=== PATIENT | female | born 1985 | race Caucasian/White ===

== ENCOUNTER 2021-09-16 05:07 | Inpatient (IN) | payer BC ==
[2021-09-16] MEDS ORDERED: Water For Irrigation,Sterile 1,000 ML Container IRR PRN (05:11)
[2021-09-16] MEDS ORDERED: Methylergonovine 0.2 MG/1 ML Amp IM PRN (05:11)
[2021-09-16] MEDS ORDERED: Sodium Chloride 0.9% 20 ML SDV IV PRN (05:11)
[2021-09-16] MEDS ORDERED: Butorphanol 1 MG/ML SDV IVPUSH PRN (05:11)
[2021-09-16] MEDS ORDERED: Carboprost Tromethamine 250 MCG/1 ML Amp IM PRN (05:11)
[2021-09-16] MEDS ORDERED: Sodium Chloride 0.9% 10 ML Syringe FLUSH PRN (05:11)
[2021-09-16] MEDS ORDERED: Lidocaine 1% 50 ML MDV INJECT PRN (05:11)
[2021-09-16] MEDS ORDERED: Misoprostol 25 MCG (1/4 of 100 MCG) Tab VAG PRN (05:11)
[2021-09-16] MEDS ORDERED: Nalbuphine 10 MG/1 ML Vial IVPUSH PRN (05:11)
[2021-09-16] MEDS ORDERED: Tranexamic Acid 1,000 MG in Sodium Chloride 0.9% 100 ML IV PRN (05:11)
[2021-09-16] MEDS ORDERED: Misoprostol 200 MCG Tab PO PRN (05:11)
[2021-09-16] MEDS ORDERED: Terbutaline 1 MG/ML SDV SUBCUT PRN (05:11)
[2021-09-16] MEDS ORDERED: Sodium Chloride 0.9% 2.5 ML Syringe FLUSH PRN (05:11)
[2021-09-16] MEDS ORDERED: Ondansetron 4 MG/2 ML SDV IVPUSH PRN (05:11)
[2021-09-16] MEDS ORDERED: Oxytocin/0.9 % Sodium Chloride 30 UNIT/500 ML BAG IV SCH ×2 (05:15)
[2021-09-16] MEDS ORDERED: Sodium Chloride 0.9% 20 ML SDV FLUSH PRN (05:23)
[2021-09-16] MEDS: Lactated Ringers 1,000 ML IV SCH ×4 (05:33→19:59)
[2021-09-16 09:29] LABS: BLOOD UREA NITROGEN,BUN 9 mg/dL (7.0-18.0); CARBON DIOXIDE,CO2 20.4 mmol/L (21.0-32.0); CHLORIDE,CL 103 mmol/L (98-107); GLUCOSE RANDOM 158 mg/dL (74-106); POTASSIUM,K 3.7 mmol/L (3.5-5.1); SODIUM,NA 137 mmol/L (136-145)
[2021-09-16] MEDS: Misoprostol 25 MCG (1/4 of 100 MCG) Tab VAG PRN ×2 (10:25→14:52)
[2021-09-16] MEDS ORDERED: Ropivacaine HCl/PF 200 ML ONE (19:45)
[2021-09-16] MEDS ORDERED: ePHEDrine 50 MG/ML SDV IVPUSH PRN (20:13)
[2021-09-16] MEDS ORDERED: Ropivacaine/PF 400 MG/200 ML PCA EPIDUR SCH (20:15)
--- NOTE | 2021-09-16 20:16 | PCM.PREANE ---
Preanesthetic Assessment - Anesthesia/Transfusion/Family Hx Anesthesia History: Prior Anesthesia Without Reaction Family History of Anesthesia Reaction: No Transfusion History: No Prior Transfusion(s) - Review of Systems General: No Symptoms Pulmonary: No Symptoms Cardiovascular: No Symptoms Gastrointestinal: No Symptoms Neurological: No Symptoms Other: Reports: None (hypothyroid) - Physical Assessment NPO Status Date: 09/16/21 NPO Status Time: 15:00 Vital Signs: Last Vital Signs Temp 36.1 C 09/16/21 08:08 Pulse 67 09/16/21 08:08 Resp 20 09/16/21 08:08 BP 135/60 09/16/21 08:08 Pulse Ox Height: 1.78 m Weight: 112.491 kg ASA Class: 2 Mental Status: Alert & Oriented x3 Airway Class: Mallampati = 2 Dentition: Reports: Normal Dentition Thyro-Mental Finger Breadths: 3 Mouth Opening Finger Breadths: 3 ROM/Head Extension: Full Lungs: Clear to Auscultation, Normal Respiratory Effort Cardiovascular: Regular Rate, Regular Rhythm - Lab Values: Laboratory Last Values WBC 8.11 K/uL (4.0-11.0) 09/16/21 05:25 RBC 4.23 M/uL (4.30-5.90) L 09/16/21 05:25 Hgb 12.9 g/dL (12.0-16.0) 09/16/21 05:25 Hct 37.8 % (36.0-46.0) 09/16/21 05:25 MCV 89.4 fL (80.0-98.0) 09/16/21 05:25 MCH 30.5 pg (27.0-32.0) 09/16/21 05:25 MCHC 34.1 g/dL (31.0-37.0) 09/16/21 05:25 RDW Std Deviation 46.0 fl (28.0-62.0) 09/16/21 05:25 RDW Coeff of Simon 14 % (11.0-15.0) 09/16/21 05:25 Plt Count 233 K/uL (150-400) 09/16/21 05:25 MPV 11.90 fL (7.40-12.00) 09/16/21 05:25 Nucleated RBC % 0.0 /100WBC 09/16/21 05:25 Nucleated RBCs # 0 K/uL 09/16/21 05:25 Sodium 137 mmol/L (136-145) 09/16/21 05:25 Potassium 3.7 mmol/L (3.5-5.1) 09/16/21 05:25 Chloride 103 mmol/L (98-107) 09/16/21 05:25 Carbon Dioxide 20.4 mmol/L (21.0-32.0) L 09/16/21 05:25 BUN 9 mg/dL (7.0-18.0) 09/16/21 05:25 Creatinine 0.9 mg/dL (0.6-1.0) 09/16/21 05:25 Est Cr Clr Drug Dosing 92.55 mL/min 09/16/21 05:25 Estimated GFR (MDRD) > 60.0 ml/min 09/16/21 05:25 Glucose 158 mg/dL (74-106) H 09/16/21 05:25 Uric Acid 5.3 mg/dL (2.6-7.2) 09/16/21 05:25 Calcium 8.5 mg/dL (8.5-10.1) 09/16/21 05:25 Total Bilirubin 0.2 mg/dL (0.2-1.0) 09/16/21 05:25 AST 22 IU/L (15-37) 09/16/21 05:25 ALT 21 IU/L (14-63) 09/16/21 05:25 Alkaline Phosphatase 195 U/L (46-116) H 09/16/21 05:25 Total Protein 6.3 g/dL (6.4-8.2) L 09/16/21 05:25 Albumin 2.5 g/dL (3.4-5.0) L 09/16/21 05:25 Globulin 3.8 g/dL (2.6-4.0) 09/16/21 05:25 Albumin/Globulin Ratio 0.7 (0.9-1.6) L 09/16/21 05:25 Ur Random Creatinine 37.7 mg/dL 09/16/21 09:45 U Random Total Protein 17.0 mg/dL (<11.9) H 09/16/21 09:45 Protein/Creatinin Ratio 0.5 09/16/21 09:45 Blood Type A POSITIVE 09/16/21 05:25 Antibody Screen NEGATIVE 09/16/21 05:25 - Allergies Allergies/Adverse Reactions: Allergies Allergy/AdvReac Type Severity Reaction Status Date / Time ethinyl estradiol Allergy Sneezing Verified 09/15/21 11:28 [From ()] levonorgestrel Allergy Sneezing Verified 09/15/21 11:28 [From ()] - Blood Blood Available: Yes Product(s) Available: PRBC (Type and screen) - Anesthesia Plan Pre-Op Medication Ordered: None - Acknowledgements Anesthesia Type Planned: Epidural Pt an Appropriate Candidate for the Planned Anesthesia: Yes Alternatives and Risks of Anesthesia Discussed w Pt/Guardian: Yes Pt/Guardian Understands and Agrees with Anesthesia Plan: Yes PreAnesthesia Questionnaire HEENT History: Reports: Impaired Vision, Other (See Below) Other HEENT History: seasonal allergies Cardiovascular History: Reports: None Respiratory History: Reports: None Gastrointestinal History: Reports: Other (See Below) Other Gastrointestinal History: heartburn with Genitourinary History: Reports: None PROJECT CONTROL ANALYST History: Reports: Fibroids, Musculoskeletal History: Reports: RA Neurological History: Reports: Migraines Psychiatric History: Reports: None Endocrine/Metabolic History: Reports: Hypothyroidism Hematologic History: Reports: None Immunologic History: Reports: None Oncologic (Cancer) History: Reports: None Dermatologic History: Reports: Eczema - Infectious Disease History Infectious Disease History: Reports: Chicken Pox - Past Surgical History HEENT Surgical History: Reports: Oral Surgery GI Surgical History: Reports: None Female Surgical History: Reports: None Musculoskeletal Surgical History: Reports: None - SUBSTANCE USE Tobacco Use Status *Q: Never Tobacco User Second Hand Smoke Exposure: No Recreational Drug Use History: No - HOME MEDS Home Medications: Home Meds Levothyroxine [Synthroid] 100 mcg PO ACBREAKFAST 09/16/21 [History] Vit #76/Iron,Carb/Fa [Pnv 29-1 Tablet] 1 tab PO DAILY 09/16/21 [History] - CURRENT (IN HOUSE) MEDS Current Meds: Current Medications Butorphanol Tartrate (Butorphanol 1 Mg/Ml Sdv) 1 mg IVPUSH Q1H PRN PRN Reason: Pain (severe 7-10) Carboprost Tromethamine (Carboprost Tromethamine 250 Mcg/1 Ml Amp) 250 mcg IM ASDIRECTED PRN PRN Reason: Post Hemorrhage Oxytocin/Sodium Chloride (Oxytocin 30 Unit In Ns 0.9% 500 Ml Premix) 30 unit in 500 mls @ 2 mls/hr IV TITRATE SUSIE; Protocol Last Admin: 09/16/21 19:42 Dose: 2 munits/min, 2 mls/hr Documented by: Lactated Ringer's (Ringers, Lactated) 1,000 mls @ 150 mls/hr IV ASDIRECTED SUSIE Last Infusion: 09/16/21 20:07 Dose: 150 mls/hr Documented by: Oxytocin/Sodium Chloride (Oxytocin 30 Unit In Ns 0.9% 500 Ml Premix) 30 unit in 500 mls @ 999 mls/hr IV TITRATE SUSIE Tranexamic Acid 1,000 mg/ (Sodium Chloride) 110 mls @ 660 mls/hr IV ONETIME PRN PRN Reason: Bleeding Lidocaine HCl (Lidocaine 1% 50 Ml Mdv) 50 ml INJECT ONETIME PRN PRN Reason: Laceration repair Methylergonovine Maleate (Methylergonovine 0.2 Mg/1 Ml Amp) 0.2 mg IM ASDIRECTED PRN PRN Reason: Post Hemorrhage Misoprostol (Misoprostol 25 Mcg (1/4 Of 100 Mcg) Tab) 25 mcg VAG ONETIME PRN PRN Reason: Cervical Ripening Misoprostol (Misoprostol 25 Mcg (1/4 Of 100 Mcg) Tab) 25 mcg VAG Q4H PRN PRN Reason: Cervical Ripening Last Admin: 09/16/21 14:52 Dose: 25 mcg Documented by: Misoprostol (Misoprostol 200 Mcg Tab) 200 mcg PO ONETIME PRN PRN Reason: Post Hemorrhage Nalbuphine HCl (Nalbuphine 10 Mg/1 Ml Vial) 10 mg IVPUSH Q1H PRN PRN Reason: Pain (severe 7-10) Last Admin: 09/16/21 17:23 Dose: 10 mg Documented by: Ondansetron HCl (Ondansetron 4 Mg/2 Ml Sdv) 4 mg IVPUSH Q4H PRN PRN Reason: Nausea/Vomiting Sodium Chloride (Sodium Chloride 0.9% 10 Ml Syringe) 10 ml FLUSH ASDIRECTED PRN PRN Reason: Keep Vein Open Sodium Chloride (Sodium Chloride 0.9% 2.5 Ml Syringe) 2.5 ml FLUSH ASDIRECTED PRN PRN Reason: Keep Vein Open Sodium Chloride (Sodium Chloride 0.9% 20 Ml Sdv) 10 ml IV ASDIRECTED PRN PRN Reason: IV Use Sodium Chloride (Sodium Chloride 0.9% 20 Ml Sdv) 10 ml FLUSH ASDIRECTED PRN PRN Reason: IV Use Sterile Water (Water For Irrigation,Sterile 1,000 Ml Container) 1,000 ml IRR ASDIRECTED PRN PRN Reason: delivery Terbutaline Sulfate (Terbutaline 1 Mg/Ml Sdv) 0.25 mg SUBCUT ASDIRECTED PRN PRN Reason: Tacysystole Discontinued Medications Ropivacaine (Naropin 0.2%) Confirm Administered Dose 200 mls @ as directed .ROUTE .[facility]-MED ONE Stop: 09/16/21 19:46
--- NOTE | 2021-09-16 20:19 | PCM.SN.2 ---
- Pre-Procedure Checklist Attending Provider Aware: Yes Chart Reviewed: Yes Consent Signed: Yes Labs Reviewed: Yes VS/FHR Reviewed: Yes Patient Identification Confirmation Method: Reports: Chart Visual, Verbal Patient Pt an Appropriate Candidate for the Planned Anesthesia: Yes Alternatives and Risks of Anesthesia Discussed w Pt/Guardian: Yes - Procedure Procedure Start Date: 09/16/21 Procedure Start Time: 19:[address]: Reports: Blood Pressure, Heart Rate, SPO2 Functional IV: Yes Bolus Infused (fluid type and amount): 800 of LR in at time of infusion start Safety Measures: Reports: Patient Identified, Procedure Verified, Site Verified, Procedure Time Out Patient Position: Reports: Sitting Prep: Reports: Betadine x3 Local Anesthetic: Reports: Intradermal Wheal w Lidocaine 1% (3 ml) Regional Placement Level: Reports: L3-4 Needle: Reports: 17 g Touhy Approach: Reports: Midline Technique: Reports: HENRY Glass Syringe Parasthesia: Reports: None Fluid Obtained: Reports: None Catheter Depth at Skin (cm): 15 cm Test Dose Time: 19:40 Test Dose Medication: Reports: Lidocaine 1.5% w Epinephrine 1:200,000 (5 ml) Test Dose Response: Reports: Negative Loading Dose Time: 19:56 Loading Dose Medication: Ropivicaine 0.2% Loading Dose Patient Position: 8 ml Continuous Infusion Start Time: 19:57 Continuous Infusion Medication: Ropivicaine 0.2% Continuous Infusion Rate: 14 Continuous Infusion PCS Bolus Option: 6 Continuous Infusion Lockout Dose (cc/hr): 15 Patient Position Post Placement: Reports: Supline/LIZETTE Post-procedure Pain Level: 0 Level Achieved: T4 Procedure End Date: 09/16/21 Procedure End Time: 20:25 Procedure Comment: Sterile technique used throughout.
--- NOTE | 2021-09-16 20:20 | PCM.POSTAN ---
POST ANESTHESIA ASSESSMENT - MENTAL STATUS Mental Status: Alert, Oriented - VITAL SIGNS Vital Signs: Last Vital Signs Temp 36.1 C 09/16/21 08:08 Pulse 67 09/16/21 08:08 Resp 20 09/16/21 08:08 BP 135/60 09/16/21 08:08 Pulse Ox - RESPIRATORY Respiratory Status: Respiratory Rate WNL, Airway Patent, O2 Saturation Stable - CARDIOVASCULAR CV Status: Pulse Rate WNL, Blood Pressure Stable - GASTROINTESTINAL GI Status: No Symptoms - POST OP HYDRATION Hydration Status: Adequate & Stable
[2021-09-17] MEDS ORDERED: Sodium Chloride 0.9% 1,000 ML IRR SCH (00:24)
[2021-09-17] MEDS: Lactated Ringers 1,000 ML IV SCH (01:00)
[2021-09-17] MEDS ORDERED: fentaNYL 100 MCG/2 ML SDV ONE (07:28)
[2021-09-17] MEDS ORDERED: Octyl 2-Cyanoacrylate 1 Tube ONE (07:41)
[2021-09-17] MEDS ORDERED: Citric Acid/Sodium Citrate Solution 30 ML Cup PO ONE (08:09)
[2021-09-17] MEDS ORDERED: Sodium Chloride 0.9% 2.5 ML Syringe FLUSH PRN (08:09)
[2021-09-17] MEDS ORDERED: ceFAZolin 2 GM in Premix Bag 1 BAG IV ONE (08:09)
[2021-09-17] MEDS ORDERED: Lidocaine 2% with EPINEPHrine 1:100,000 20 ML MDV ONE (08:15)
[2021-09-17] MEDS ORDERED: Lactated Ringers 1,000 ML IV SCH ×2 (08:15→10:15)
[2021-09-17] MEDS ORDERED: Oxytocin 10 Units/1 ML SDV ONE (08:39)
--- NOTE | 2021-09-17 09:42 | PCM48HPAN ---
Post Anesthesia Note - EVALUATION WITHIN 48HRS OF ANESTHETIC Vital Signs in Normal Range: Yes Patient Participated in Evaluation: Yes Respiratory Function Stable: Yes Airway Patent: Yes Cardiovascular Function Stable: Yes Hydration Status Stable: Yes Pain Control Satisfactory: Yes Nausea and Vomiting Control Satisfactory: Yes Mental Status Recovered: Yes Vital Signs: Last Vital Signs Temp 36.1 C 09/16/21 08:08 Pulse 98 09/17/21 09:32 Resp 16 09/17/21 09:32 BP 122/69 09/17/21 09:32 Pulse Ox 94 L 09/17/21 09:32 - COMMENTS/OBSERVATIONS Free Text/Narrative:: Epidural catheter removed with tip intact.
[2021-09-17] MEDS ORDERED: Bisacodyl 10 MG Supp RECTAL PRN (10:10)
[2021-09-17] MEDS ORDERED: Ondansetron 4 MG/2 ML SDV IVPUSH PRN (10:10)
[2021-09-17] MEDS ORDERED: Oxytocin 10 Units/1 ML SDV IM PRN (10:10)
[2021-09-17] MEDS ORDERED: Tranexamic Acid 1,000 MG in Sodium Chloride 0.9% 100 ML IV PRN (10:10)
[2021-09-17] MEDS ORDERED: Methylergonovine 0.2 MG/1 ML Amp IM PRN (10:10)
[2021-09-17] MEDS ORDERED: Lanolin 100% Cream 7 GM Tube TOP PRN (10:10)
[2021-09-17] MEDS ORDERED: diphenhydrAMINE 50 MG/ML SDV IVPUSH PRN (10:10)
[2021-09-17] MEDS ORDERED: Misoprostol 200 MCG Tab RECTAL PRN (10:10)
[2021-09-17] MEDS ORDERED: Acetaminophen/oxyCODONE 325-5 MG Tab PO PRN (10:10)
[2021-09-17] MEDS ORDERED: Oxytocin/Lactated Ringers 30 UNIT/500 ML BAG IV SCH (10:15)
--- NOTE | 2021-09-17 10:19 | PCM.OPNOTE ---
- General Post-Op/Procedure Note Date of Surgery/Procedure: 09/17/21 Operative Procedure(s): Primary lower segment transverse section Findings: Live male delivered at 826am , 9/9 weight 3990g Pre Op Diagnosis: 36yo @ 40w0d. Arrest of descent. Mild preclampsia Post-Op Diagnosis: 36yo @ 40w0d. Arrest of descent. Mild preclampsia Anesthesia Technique: Epidural Primary Surgeon: Quentin Lees Anesthesia Provider: Bertrand Verdin Fluid Replacement, Intraop: 1,700 Output, Urine Amount: 150 EBL in mLs: 800 Complications: None Condition: Good Free Text/Narrative:: Intake & Output 09/16/21 09/17/21 09/17/21 22:59 06:59 14:59 Intake Total 750 1700 Output Total 850 150 Balance -100 1550
[2021-09-17] MEDS: Ketorolac 30 MG/ML SDV IVPUSH SCH ×3 (11:49→23:50)
--- NOTE | 2021-09-17 13:11 | OR ---
SURGEON: YANCI BAR DATE OF PROCEDURE:09/17/2021 PREOPERATIVE DIAGNOSES: 1. 36-year-old G1, P0, at 40 weeks 0 days. 2. In vitro fertilization . 3. Mild preeclampsia. 4. Arrest of descent. POSTOPERATIVE DIAGNOSES: 1. 36-year-old G1, P0, at 40 weeks 0 days. 2. In vitro fertilization . 3. Mild preeclampsia. 4. Arrest of descent. PROCEDURE: Primary lower segment section. ESTIMATED BLOOD LOSS: 800. INTRAVENOUS FLUIDS: 1700. URINE OUTPUT: 150. NOTES AND FINDINGS: Live male delivered at 8:26. scores of 9 and 9. Weight is 3990 g. COMPLICATION: None. ANESTHESIA: Epidural. BRIEF HISTORY: 36-yo @ 40w0d with IVF . was normal except for a splenic cyst that was noted on ultrasound. She saw M and [facility] recommended followup. She was counseled for induction of labor after 39weeks which she accepted. Induction of labor was started with Cytotec. She got three doses of Cytotec, after which she got Pitocin. When Pitocin was started, patient was noted to have some variable decels, so Pitocin was stopped. AROM was done and IUPC was placed. Amnioinfusion was started. Tracing improved. Patient made change, became fully dilated. Slight Pitocin was started prior to this. When patient was fully dilated, she was encouraged to push. She pushed for 2 hours. Baby was in OP position. Attempt was made to rotate, patient was fatigued and there was no descent. As a result, recommendation was for delivery via primary section. She was explained the risks, benefits, and alternatives and decided to proceed. Prior to delivery, Pillow was placed to elevated the head without any difficulty. DESCRIPTION OF PROCEDURE: Patient was taken to the operating room where epidural anesthesia was topped up. She was prepared and draped in the dorsal supine position with a leftward tilt. A Pfannenstiel skin incision was made with a scalpel and carried down to the fascia with the Bovie. The fascia was incised and extended upwards and laterally. The fascia was then superiorly and also inferiorly. Rectus muscle was in midline to the level of pubic symphysis. The Gerardo retractor was placed to expose the lower uterine segment. A bladder flap was created. Lower uterine segment incision was made. The infant was in OP position, was brought to the level of the incision, and delivered without difficulty. Delayed cord clamping was observed. Cord blood gases were obtained. The placenta was delivered via manual massage of the uterine fundus. The uterus was cleaned with moist laparotomy sponge. The incision was closed in two layers, first layer with 0 Vicryl, second layer with 0 Monocryl. The incision was inspected and noted to be hemostatic. In the uterus, there was noted to be some fibroids. Subserosal fibroids were noted, and ovary was seen on the left. Right side was not visualized. The Gerardo retractor was removed. The incision was inspected and noted to be hemostatic. The peritoneum was closed with 2-0 Vicryl. The muscle was apposed in the midline with 0 Vicryl. The fascia was closed with 0 Vicryl. Subcutaneous fat was closed with plain gut, and the skin was closed with 3-0 Monocryl on a Ace needle. All instrument and pad counts were correct x2. The patient tolerated the procedure well and was taken to the Labor and Delivery room in stable condition. SURINDER JOSEPH /[id number] SHANKAR
[2021-09-17] MEDS: Docusate Sodium 100 MG Cap PO SCH (23:49)
[2021-09-18] MEDS: Ketorolac 30 MG/ML SDV IVPUSH SCH ×2 (05:19→10:41)
[2021-09-18] MEDS: Docusate Sodium 100 MG Cap PO SCH ×2 (10:40→22:10)
--- NOTE | 2021-09-18 12:14 | PCM.PNPP ---
- General Info Date of Service: 09/18/21 Functional Status: Reports: Pain Controlled, Tolerating Diet, Ambulating, Urinating, Other (Passing flatus) - Review of Systems General: Reports: No Symptoms HEENT: Reports: No Symptoms Pulmonary: Reports: No Symptoms Cardiovascular: Reports: No Symptoms Gastrointestinal: Reports: No Symptoms Genitourinary: Reports: No Symptoms Musculoskeletal: Reports: No Symptoms Skin: Reports: No Symptoms Neurological: Reports: No Symptoms Psychiatric: Reports: No Symptoms - Patient Data Vital Signs - Most Recent: Last Vital Signs Temp 36.6 C 09/18/21 11:50 Pulse 80 09/18/21 11:50 Resp 18 09/18/21 11:50 BP 121/58 L 09/18/21 11:50 Pulse Ox 94 L 09/18/21 11:50 Weight - Most Recent: 248 lb I&O - Last 24 Hours: Intake & Output 09/17/21 09/18/21 09/18/21 23:59 06:59 14:59 Intake Total Output Total Balance Lab Results - Last 24 Hours: Laboratory Results - last 24 hr 09/18/21 Range/Units 05:55 Hgb 9.3 L (12.0-16.0) g/dL Hct 27.6 L (36.0-46.0) % Med Orders - Current: Current Medications Bisacodyl (Bisacodyl 10 Mg Supp) 10 mg RECTAL ONETIME PRN PRN Reason: Constipation Butorphanol Tartrate (Butorphanol 1 Mg/Ml Sdv) 1 mg IVPUSH Q1H PRN PRN Reason: Pain (severe 7-10) Carboprost Tromethamine (Carboprost Tromethamine 250 Mcg/1 Ml Amp) 250 mcg IM ASDIRECTED PRN PRN Reason: Post Hemorrhage Diphenhydramine HCl (Diphenhydramine 50 Mg/Ml Sdv) 25 mg IVPUSH Q6H PRN PRN Reason: Itching or Nausea Docusate Sodium (Docusate Sodium 100 Mg Cap) 100 mg PO BID SUSIE Last Admin: 09/18/21 10:40 Dose: 100 mg Documented by: Emollient Ointment (Lanolin 100% Cream 7 Gm Tube) 0 gm TOP ASDIRECTED PRN PRN Reason: Sore Nipples Ephedrine Sulfate (Ephedrine 50 Mg/Ml Sdv) 10 mg IVPUSH Q1M PRN PRN Reason: Hypotension Oxytocin/Sodium Chloride (Oxytocin 30 Unit In Ns 0.9% 500 Ml Premix) 30 unit in 500 mls @ 2 mls/hr IV TITRATE SUSIE; Protocol Last Titration: 09/17/21 07:02 Dose: 0 munits/min, 0 mls/hr Documented by: Lactated Ringer's (Ringers, Lactated) 1,000 mls @ 150 mls/hr IV ASDIRECTED SUSIE Last Admin: 09/17/21 01:00 Dose: 150 mls/hr Documented by: Oxytocin/Sodium Chloride (Oxytocin 30 Unit In Ns 0.9% 500 Ml Premix) 30 unit in 500 mls @ 999 mls/hr IV TITRATE SUSIE Tranexamic Acid 1,000 mg/ (Sodium Chloride) 110 mls @ 660 mls/hr IV ONETIME PRN PRN Reason: Bleeding Sodium Chloride (Sodium Chloride 0.9%) 1,000 mls @ 999 mls/hr IRR ASDIRECTED SUSIE Last Infusion: 09/17/21 00:57 Dose: 50 mls/hr Documented by: Lactated Ringer's (Ringers, Lactated) 1,000 mls @ 500 mls/hr IV BOLUS SUSIE Lactated Ringer's (Ringers, Lactated) 1,000 mls @ 125 mls/hr IV ASDIRECTED SUSIE Oxytocin/Lactated Ringer's (Pitocin In Lr 30 Units/500 Ml) 30 unit in 500 mls @ 2 mls/hr IV TITRATE SUSIE; Protocol Tranexamic Acid 1,000 mg/ (Sodium Chloride) 110 mls @ 660 mls/hr IV ONETIME PRN PRN Reason: Bleeding Ibuprofen (Ibuprofen 800 Mg Tab) 800 mg PO Q8H PRN PRN Reason: Cramping Lidocaine HCl (Lidocaine 1% 50 Ml Mdv) 50 ml INJECT ONETIME PRN PRN Reason: Laceration repair Methylergonovine Maleate (Methylergonovine 0.2 Mg/1 Ml Amp) 0.2 mg IM ASDIRECTED PRN PRN Reason: Post Hemorrhage Methylergonovine Maleate (Methylergonovine 0.2 Mg/1 Ml Amp) 0.2 mg IM ONETIME PRN PRN Reason: Excessive Vaginal Bleeding Miscellaneous Medication (Phenylephrine Hcl In 0.9% Nacl 1 Mg/10 Ml Syringe) 0.1 mg IVPUSH Q1M PRN PRN Reason: Hypotension Misoprostol (Misoprostol 25 Mcg (1/4 Of 100 Mcg) Tab) 25 mcg VAG ONETIME PRN PRN Reason: Cervical Ripening Misoprostol (Misoprostol 25 Mcg (1/4 Of 100 Mcg) Tab) 25 mcg VAG Q4H PRN PRN Reason: Cervical Ripening Last Admin: 09/16/21 14:52 Dose: 25 mcg Documented by: Misoprostol (Misoprostol 200 Mcg Tab) 200 mcg PO ONETIME PRN PRN Reason: Post Hemorrhage Misoprostol (Misoprostol 200 Mcg Tab) 1,000 mcg RECTAL ONETIME PRN PRN Reason: excessive bleeding Nalbuphine HCl (Nalbuphine 10 Mg/1 Ml Vial) 10 mg IVPUSH Q1H PRN PRN Reason: Pain (severe 7-10) Last Admin: 09/16/21 17:23 Dose: 10 mg Documented by: Ondansetron HCl (Ondansetron 4 Mg/2 Ml Sdv) 4 mg IVPUSH Q4H PRN PRN Reason: Nausea/Vomiting Last Admin: 09/16/21 23:55 Dose: 4 mg Documented by: Ondansetron HCl (Ondansetron 4 Mg/2 Ml Sdv) 4 mg IVPUSH Q4H PRN PRN Reason: Nausea/Vomiting Oxycodone/Acetaminophen (Acetaminophen/Oxycodone 325-5 Mg Tab) 1 tab PO Q4H PRN PRN Reason: Pain (severe 7-10) Oxycodone/Acetaminophen (Acetaminophen/Oxycodone 325-5 Mg Tab) 2 tab PO Q4H PRN PRN Reason: Pain (severe 7-10) Oxytocin (Oxytocin 10 Units/1 Ml Sdv) 10 unit IM ASDIRECTED PRN PRN Reason: Excessive Vaginal Bleeding Ropivacaine (Ropivacaine/Pf 400 Mg/200 Ml Machine Precision Engraver) 400 mg EPIDUR ASDIRECTED SUSIE Sodium Chloride (Sodium Chloride 0.9% 10 Ml Syringe) 10 ml FLUSH ASDIRECTED PRN PRN Reason: Keep Vein Open Sodium Chloride (Sodium Chloride 0.9% 2.5 Ml Syringe) 2.5 ml FLUSH ASDIRECTED PRN PRN Reason: Keep Vein Open Sodium Chloride (Sodium Chloride 0.9% 20 Ml Sdv) 10 ml IV ASDIRECTED PRN PRN Reason: IV Use Sodium Chloride (Sodium Chloride 0.9% 20 Ml Sdv) 10 ml FLUSH ASDIRECTED PRN PRN Reason: IV Use Sodium Chloride (Sodium Chloride 0.9% 2.5 Ml Syringe) 2.5 ml FLUSH ASDIRECTED PRN PRN Reason: Keep Vein Open Sterile Water (Water For Irrigation,Sterile 1,000 Ml Container) 1,000 ml IRR ASDIRECTED PRN PRN Reason: delivery Terbutaline Sulfate (Terbutaline 1 Mg/Ml Sdv) 0.25 mg SUBCUT ASDIRECTED PRN PRN Reason: Tacysystole Discontinued Medications Citric Acid/Sodium Citrate (Citric Acid/Sodium Citrate Solution 30 Ml Cup) 30 ml PO ONETIME ONE Stop: 09/17/21 08:10 Last Admin: 09/17/21 11:52 Dose: Not Given Documented by: Fentanyl (Fentanyl 100 Mcg/2 Ml Sdv) Confirm Administered Dose 100 mcg .ROUTE .STK-MED ONE Stop: 09/17/21 07:29 Ropivacaine (Naropin 0.2%) Confirm Administered Dose 200 mls @ as directed .ROUTE .STK-MED ONE Stop: 09/16/21 19:46 Last Admin: 09/17/21 11:51 Dose: Not Given Documented by: Cefazolin Sodium/Dextrose 2 gm (/ Premix) 50 mls @ 100 mls/hr IV ONETIME ONE Stop: 09/17/21 08:38 Last Admin: 09/17/21 11:52 Dose: Not Given Documented by: Cefazolin Sodium/Dextrose (Ancef) Confirm Administered Dose 50 mls @ as directed .ROUTE .STK-MED ONE Stop: 09/17/21 08:16 Ketorolac Tromethamine (Ketorolac 30 Mg/Ml Sdv) 30 mg IVPUSH Q6H SUSIE Stop: 09/18/21 10:16 Last Admin: 09/18/21 10:41 Dose: 30 mg Documented by: Lidocaine/Epinephrine (Lidocaine 2% With Epinephrine 1:100,000 20 Ml Mdv) Confirm Administered Dose 20 ml .ROUTE .STK-MED ONE Stop: 09/17/21 08:16 Octyl Cyanoacrylate (Octyl 2-Cyanoacrylate 1 Tube) Confirm Administered Dose 1 applic .ROUTE .STK-MED ONE Stop: 09/17/21 07:42 Last Admin: 09/17/21 11:51 Dose: Not Given Documented by: Oxytocin (Oxytocin 10 Units/1 Ml Sdv) Confirm Administered Dose 20 unit .ROUTE .STK-MED ONE Stop: 09/17/21 08:40 - Infant Interaction Disposition, : [place] at Bedside Support Person: Significant Other - Recovery Exam Fundal Tone: Firm Fundal Level: 2 Fingerbreadths Below Umbilicus Fundal Placement: Midline Lochia Amount: Scant Lochia Color: Rubra/Red Perineum Description: Intact, Minimal Bruising/Swelling Episiotomy/Laceration: None Bladder Status: Indwelling Catheter in Place Urinary Elimination: Other (see below) Other Urinary Elimination, : Due to void. - Exam General: Alert, Oriented, Cooperative, No Acute Distress HEENT: Pupils Equal, Pupils Reactive, EOMI Neck: Supple, Trachea Midline, No JVD Lungs: Normal Respiratory Effort GI/Abdominal Exam: Soft, Non-Tender, No Distention Extremities: Normal Inspection, Normal Range of Motion, Non-Tender, No Pedal Edema Skin: Warm, Dry, Intact Wound/Incisions: Dressing Dry and Intact Neurological: No New Focal Deficit Psy/Mental Status: Alert, Normal Affect, Normal Mood - Problem List Review Problem List Initiated/Reviewed/Updated: Yes - Assessment Assessment:: 36yo POD1 s/p primary LTCS, complicated by preeclampsia without severe features and arrest of descent. Stable and recovering well. - Plan Plan:: - BP normotensive with occasional mild range, no symptoms - ambulating and tolerating PO - cortez removed, voiding - bleeding light, Hgb 9.3 this AM, start iron supplement Continue inpatient. Plan for discharge home tomorrow.
[2021-09-18] MEDS ORDERED: Ibuprofen 800 MG Tab PO PRN (16:15)
[2021-09-18] MEDS: Acetaminophen/oxyCODONE 325-5 MG Tab PO PRN (16:30)
[2021-09-19] MEDS: Acetaminophen/oxyCODONE 325-5 MG Tab PO PRN (08:10)
--- NOTE | 2021-09-19 08:23 | PCM.PNPP ---
- General Info Date of Service: 09/19/21 Subjective Update: 36yo P1 s/p primary POD2 , Mild preclampsia , Denies headache , RUQ pain and BV Pain control is good Functional Status: Reports: Pain Controlled, Tolerating Diet, Ambulating, Urinating - Review of Systems General: Reports: No Symptoms HEENT: Reports: No Symptoms Pulmonary: Reports: No Symptoms Cardiovascular: Reports: No Symptoms Gastrointestinal: Reports: No Symptoms Genitourinary: Reports: No Symptoms Musculoskeletal: Reports: No Symptoms Skin: Reports: No Symptoms Neurological: Reports: No Symptoms Psychiatric: Reports: No Symptoms - General Info Date of Service: 09/19/21 - Patient Data Vital Signs - Most Recent: Last Vital Signs Temp 36.1 C 09/19/21 07:30 Pulse 70 09/19/21 07:30 Resp 16 09/19/21 07:30 BP 129/84 09/19/21 07:30 Pulse Ox 95 09/19/21 07:30 Weight - Most Recent: 112.491 kg Med Orders - Current: Current Medications Bisacodyl (Bisacodyl 10 Mg Supp) 10 mg RECTAL ONETIME PRN PRN Reason: Constipation Butorphanol Tartrate (Butorphanol 1 Mg/Ml Sdv) 1 mg IVPUSH Q1H PRN PRN Reason: Pain (severe 7-10) Carboprost Tromethamine (Carboprost Tromethamine 250 Mcg/1 Ml Amp) 250 mcg IM ASDIRECTED PRN PRN Reason: Post Hemorrhage Diphenhydramine HCl (Diphenhydramine 50 Mg/Ml Sdv) 25 mg IVPUSH Q6H PRN PRN Reason: Itching or Nausea Docusate Sodium (Docusate Sodium 100 Mg Cap) 100 mg PO BID [facility] Last Admin: 09/18/21 22:10 Dose: 100 mg Documented by: Emollient Ointment (Lanolin 100% Cream 7 Gm Tube) 0 gm TOP ASDIRECTED PRN PRN Reason: Sore Nipples Ephedrine Sulfate (Ephedrine 50 Mg/Ml Sdv) 10 mg IVPUSH Q1M PRN PRN Reason: Hypotension Oxytocin/Sodium Chloride (Oxytocin 30 Unit In Ns 0.9% 500 Ml Premix) 30 unit in 500 mls @ 2 mls/hr IV TITRATE SUSIE; Protocol Last Titration: 09/17/21 07:02 Dose: 0 munits/min, 0 mls/hr Documented by: Lactated Ringer's (Ringers, Lactated) 1,000 mls @ 150 mls/hr IV ASDIRECTED SUSIE Last Admin: 09/17/21 01:00 Dose: 150 mls/hr Documented by: Oxytocin/Sodium Chloride (Oxytocin 30 Unit In Ns 0.9% 500 Ml Premix) 30 unit in 500 mls @ 999 mls/hr IV TITRATE SUSIE Tranexamic Acid 1,000 mg/ (Sodium Chloride) 110 mls @ 660 mls/hr IV ONETIME PRN PRN Reason: Bleeding Sodium Chloride (Sodium Chloride 0.9%) 1,000 mls @ 999 mls/hr IRR ASDIRECTED SUSIE Last Infusion: 09/17/21 00:57 Dose: 50 mls/hr Documented by: Lactated Ringer's (Ringers, Lactated) 1,000 mls @ 500 mls/hr IV BOLUS SUSIE Lactated Ringer's (Ringers, Lactated) 1,000 mls @ 125 mls/hr IV ASDIRECTED SUSIE Oxytocin/Lactated Ringer's (Pitocin In Lr 30 Units/500 Ml) 30 unit in 500 mls @ 2 mls/hr IV TITRATE SUSIE; Protocol Tranexamic Acid 1,000 mg/ (Sodium Chloride) 110 mls @ 660 mls/hr IV ONETIME PRN PRN Reason: Bleeding Ibuprofen (Ibuprofen 800 Mg Tab) 800 mg PO Q8H PRN PRN Reason: Cramping Last Admin: 09/19/21 05:15 Dose: 800 mg Documented by: Lidocaine HCl (Lidocaine 1% 50 Ml Mdv) 50 ml INJECT ONETIME PRN PRN Reason: Laceration repair Methylergonovine Maleate (Methylergonovine 0.2 Mg/1 Ml Amp) 0.2 mg IM ASDIRECTED PRN PRN Reason: Post Hemorrhage Methylergonovine Maleate (Methylergonovine 0.2 Mg/1 Ml Amp) 0.2 mg IM ONETIME PRN PRN Reason: Excessive Vaginal Bleeding Miscellaneous Medication (Phenylephrine Hcl In 0.9% Nacl 1 Mg/10 Ml Syringe) 0.1 mg IVPUSH Q1M PRN PRN Reason: Hypotension Misoprostol (Misoprostol 25 Mcg (1/4 Of 100 Mcg) Tab) 25 mcg VAG ONETIME PRN PRN Reason: Cervical Ripening Misoprostol (Misoprostol 25 Mcg (1/4 Of 100 Mcg) Tab) 25 mcg VAG Q4H PRN PRN Reason: Cervical Ripening Last Admin: 09/16/21 14:52 Dose: 25 mcg Documented by: Misoprostol (Misoprostol 200 Mcg Tab) 200 mcg PO ONETIME PRN PRN Reason: Post Hemorrhage Misoprostol (Misoprostol 200 Mcg Tab) 1,000 mcg RECTAL ONETIME PRN PRN Reason: excessive bleeding Nalbuphine HCl (Nalbuphine 10 Mg/1 Ml Vial) 10 mg IVPUSH Q1H PRN PRN Reason: Pain (severe 7-10) Last Admin: 09/16/21 17:23 Dose: 10 mg Documented by: Ondansetron HCl (Ondansetron 4 Mg/2 Ml Sdv) 4 mg IVPUSH Q4H PRN PRN Reason: Nausea/Vomiting Last Admin: 09/16/21 23:55 Dose: 4 mg Documented by: Ondansetron HCl (Ondansetron 4 Mg/2 Ml Sdv) 4 mg IVPUSH Q4H PRN PRN Reason: Nausea/Vomiting Oxycodone/Acetaminophen (Acetaminophen/Oxycodone 325-5 Mg Tab) 1 tab PO Q4H PRN PRN Reason: Pain (severe 7-10) Last Admin: 09/19/21 08:10 Dose: 1 tab Documented by: Oxycodone/Acetaminophen (Acetaminophen/Oxycodone 325-5 Mg Tab) 2 tab PO Q4H PRN PRN Reason: Pain (severe 7-10) Last Admin: 09/18/21 22:09 Dose: 2 tab Documented by: Oxytocin (Oxytocin 10 Units/1 Ml Sdv) 10 unit IM ASDIRECTED PRN PRN Reason: Excessive Vaginal Bleeding Ropivacaine (Ropivacaine/Pf 400 Mg/200 Ml Postpartum Nurse) 400 mg EPIDUR ASDIRECTED SUSIE Sodium Chloride (Sodium Chloride 0.9% 10 Ml Syringe) 10 ml FLUSH ASDIRECTED PRN PRN Reason: Keep Vein Open Sodium Chloride (Sodium Chloride 0.9% 2.5 Ml Syringe) 2.5 ml FLUSH ASDIRECTED PRN PRN Reason: Keep Vein Open Sodium Chloride (Sodium Chloride 0.9% 20 Ml Sdv) 10 ml IV ASDIRECTED PRN PRN Reason: IV Use Sodium Chloride (Sodium Chloride 0.9% 20 Ml Sdv) 10 ml FLUSH ASDIRECTED PRN PRN Reason: IV Use Sodium Chloride (Sodium Chloride 0.9% 2.5 Ml Syringe) 2.5 ml FLUSH ASDIRECTED PRN PRN Reason: Keep Vein Open Sterile Water (Water For Irrigation,Sterile 1,000 Ml Container) 1,000 ml IRR ASDIRECTED PRN PRN Reason: delivery Terbutaline Sulfate (Terbutaline 1 Mg/Ml Sdv) 0.25 mg SUBCUT ASDIRECTED PRN PRN Reason: Tacysystole Discontinued Medications Citric Acid/Sodium Citrate (Citric Acid/Sodium Citrate Solution 30 Ml Cup) 30 ml PO ONETIME ONE Stop: 09/17/21 08:10 Last Admin: 09/17/21 11:52 Dose: Not Given Documented by: Fentanyl (Fentanyl 100 Mcg/2 Ml Sdv) Confirm Administered Dose 100 mcg .ROUTE .STK-MED ONE Stop: 09/17/21 07:29 Ropivacaine (Naropin 0.2%) Confirm Administered Dose 200 mls @ as directed .ROUTE .STK-MED ONE Stop: 09/16/21 19:46 Last Admin: 09/17/21 11:51 Dose: Not Given Documented by: Cefazolin Sodium/Dextrose 2 gm (/ Premix) 50 mls @ 100 mls/hr IV ONETIME ONE Stop: 09/17/21 08:38 Last Admin: 09/17/21 11:52 Dose: Not Given Documented by: Cefazolin Sodium/Dextrose (Ancef) Confirm Administered Dose 50 mls @ as directed .ROUTE .STK-MED ONE Stop: 09/17/21 08:16 Ketorolac Tromethamine (Ketorolac 30 Mg/Ml Sdv) 30 mg IVPUSH Q6H SUSIE Stop: 09/18/21 10:16 Last Admin: 09/18/21 10:41 Dose: 30 mg Documented by: Lidocaine/Epinephrine (Lidocaine 2% With Epinephrine 1:100,000 20 Ml Mdv) Confirm Administered Dose 20 ml .ROUTE .STK-MED ONE Stop: 09/17/21 08:16 Octyl Cyanoacrylate (Octyl 2-Cyanoacrylate 1 Tube) Confirm Administered Dose 1 applic .ROUTE .STK-MED ONE Stop: 09/17/21 07:42 Last Admin: 09/17/21 11:51 Dose: Not Given Documented by: Oxytocin (Oxytocin 10 Units/1 Ml Sdv) Confirm Administered Dose 20 unit .ROUTE .STK-MED ONE Stop: 09/17/21 08:40 - Interaction Infant Disposition, : at Bedside Support Person: Significant Other - Recovery Exam Fundal Tone: Firm Fundal Level: 3 Fingerbreadths Below Umbilicus Fundal Placement: Midline Lochia Amount: Scant Lochia Color: Rubra/Red Perineum Description: Intact, Minimal Bruising/Swelling Episiotomy/Laceration: None Bladder Status: Voiding Urinary Elimination: Other (see below) Other Urinary Elimination, : Due to void. - Exam General: Alert HEENT: Pupils Equal Neck: Supple Lungs: Clear to Auscultation Cardiovascular: Regular Rate, Regular Rhythm GI/Abdominal Exam: Normal Bowel Sounds Extremities: Normal Inspection Wound/Incisions: Healing Well Neurological: No New Focal Deficit - Problem List & Annotations (1) Preeclampsia SNOMED Code(s): 742466391 Code(s): O14.90 - UNSPECIFIED PRE-ECLAMPSIA, UNSPECIFIED TRIMESTER Status: Acute Current Visit: Yes (2) delivery delivered SNOMED Code(s): 708519597 Code(s): O82 - ENCOUNTER FOR DELIVERY WITHOUT INDICATION Status: Acute Current Visit: Yes - Problem List Review Problem List Initiated/Reviewed/Updated: Yes - My Orders Last 24 Hours: My Active Orders 09/18/21 16:15 Ibuprofen [Motrin] 800 mg PO Q8H PRN - Assessment Assessment:: 36yo POD2 s/p primary LTCS, complicated by preeclampsia without severe features and arrest of descent. Stable and recovering well. - Plan Plan:: - BP normotensive with occasional mild range, no symptoms - ambulating and tolerating PO - cortez removed, voiding - bleeding light, Hgb 9.3 this AM, start iron supplement Discharge home tomorrow.
[2021-09-19] MEDS: Docusate Sodium 100 MG Cap PO SCH (10:33)
[2021-09-20] MEDS ORDERED: Sodium Chloride 0.9% 1,000 ML IRR SCH ×2 (12:00→13:00)
== END 2021-09-19 12:00 | disposition home or self-care (01) | DRG 540 ==
LOC: MW.OBCHECK 05:07 → MW.OB 05:08 → MW.OBCHECK 05:11 → OBSVTOIN 09-17 08:09 → MW.OB 09-17 13:25
PROVIDERS: ADMIT Obstetrics & Gynecology; ATTEND Obstetrics & Gynecology
PROC: 10D00Z1 Extraction of Products of Conception, Low, Open Approach (ICD-10-PCS; principal; 2021-09-17)
PROC: 3E0P7VZ Introduction of Hormone into Female Reproductive, Via Natural or Artificial Opening (ICD-10-PCS; 2021-09-17)
PROC: 10907ZC Drainage of Amniotic Fluid, Therapeutic from Products of Conception, Via Natural or Artificial Opening (ICD-10-PCS; 2021-09-17)
PROC: 3E033VJ Introduction of Other Hormone into Peripheral Vein, Percutaneous Approach (ICD-10-PCS; 2021-09-17)
DX: O14.04 Mild to moderate pre-eclampsia, complicating childbirth (principal); O09.813 Supervision of pregnancy resulting from assisted reproductive technology, third trimester; Z3A.38 38 weeks gestation of pregnancy; Z37.0 Single live birth; O62.2 Other uterine inertia; O76 Abnormality in fetal heart rate and rhythm complicating labor and delivery
CPT/HCPCS: 01967; 01968; 36415; 51702; 59025; 80053; 82570; 82803; 84156; 84550; 85014; 85018; 85027; 86592; 86850; 86900; 86901; A9270-GY; J0690; J1885; J2300; J2405; J2590; J2795; J3010; J7120